=== PATIENT | female | born 2000 | race Caucasian/White ===

== ENCOUNTER 2022-11-23 17:27 | Emergency (ER) | payer BC, OTHER ==
--- NOTE | 2022-11-23 17:57 | ED ---
General Adult HPI - General Source: RN notes reviewed <Desiree Jett - Last Filed: 11/23/22 17:56> <Mi Estrella - Last Filed: 11/24/22 01:46> - General Chief complaint: Psychiatric Symptoms Stated complaint: mental health Time Seen by Provider: 11/23/22 17:56 - History of Present Illness Initial comments: 22-year-old female who presents the emergency department with a chief complaint of psychiatric evaluation. Patient reports worsening anxiety and phobia. Denies homicidal or suicidal ideation at the time of evaluation. (Desiree Pace) Review of Systems ROS Other: All systems not noted in ROS Statement are negative. <Desiree Jett - Last Filed: 11/23/22 17:56> ROS Other: All systems not noted in ROS Statement are negative. <Mi Estrella - Last Filed: 11/24/22 01:46> ROS Statement: Those systems with pertinent positive or pertinent negative responses have been documented in the HPI. General Exam <Desiree Jett - Last Filed: 11/23/22 17:56> - General Exam Comments Initial Comments: Visual Physical Exam Vital signs reviewed General: Well-appearing, nontoxic, no acute distress. Head: Normocephalic, atraumatic Eyes: PERRLA, EOMI ENT: Airway patent Chest: Nonlabored breathing Skin: No visual rash, normal skin tone Neuro: Alert and oriented 3 Musculoskeletal: No gross abnormalities (Desiree Jett) Course Vital Signs 11/23/22 11/23/22 17:54 21:20 Temperature 98.4 F Pulse Rate 91 94 Respiratory 18 18 Rate Blood Pressure 110/69 126/70 O2 Sat by Pulse 95 97 Oximetry Medical Decision Making - Lab Data Lab Results 11/23/22 11/23/22 Range/Units 21:24 21:36 Urine Opiates Screen Not Detected (NotDetected) Ur Oxycodone Screen Not Detected (NotDetected) Urine Methadone Screen Not Detected (NotDetected) Ur Propoxyphene Screen Not Detected (NotDetected) Ur Barbiturates Screen Not Detected (NotDetected) U Tricyclic Antidepress Not Detected (NotDetected) Ur Phencyclidine Scrn Not Detected (NotDetected) Ur Amphetamines Screen Not Detected (NotDetected) U Methamphetamines Scrn Not Detected (NotDetected) U Benzodiazepines Scrn Not Detected (NotDetected) Urine Cocaine Screen Not Detected (NotDetected) U Marijuana (THC) Screen Not Detected (NotDetected) Coronavirus (PCR) Not Detected (Not Detectd) Disposition <Desiree Jett - Last Filed: 11/23/22 17:56> Is patient prescribed a controlled substance at d/c from ED?: No Time of Disposition: 01:32 <Mi Estrella - Last Filed: 11/24/22 01:46> Clinical Impression: Anxiety Disposition: LEFT AGAINST MEDICAL ADVICE Condition: Undetermined Referrals: None,Stated [Primary Care Provider] - 1-2 days
[2022-11-23 18:01] VITALS: RESP 18; TEMP 98.4
[2022-11-23 21:22] VITALS: BP 126/70; PULSE 94
[2022-11-23 22:39] LABS: Cocaine Screen,Urine Not Detected (NotDetected); Phencyclidine Screen,Urine Not Detected (NotDetected); Urn Cannabinoid Scrn Not Detected (NotDetected)
[2022-11-23 22:40] LABS: Amphetamine Screen,Urine Not Detected (NotDetected); Barbiturate Screen,Urine Not Detected (NotDetected); Benzodiazepines Screen,Urine Not Detected (NotDetected); Methadone Screen, Urine Not Detected (NotDetected); Opiate Screen,Urine Not Detected (NotDetected); Oxycodone Screen, Urine Not Detected (NotDetected); Tricyclic Antidepressant,Urine Not Detected (NotDetected)
== END 2022-11-24 03:14 | disposition left against medical advice (07) ==
LOC: EC 17:27
DX: F41.9 Anxiety disorder, unspecified (principal); Z20.822 Contact with and (suspected) exposure to COVID-19; Z53.29 Procedure and treatment not carried out because of patient's decision for other reasons
CPT/HCPCS: 80306; 87635; 99284

== ENCOUNTER 2022-11-24 13:30 | Inpatient (IN) | payer BC ==
--- NOTE | 2022-11-24 14:01 | ED ---
General Adult HPI - General Source: patient, EMS, RN notes reviewed, old records reviewed Mode of arrival: EMS Limitations: no limitations <Sagar Peraza - Last Filed: 11/24/22 13:58> <Ricardo Fulton - Last Filed: 11/24/22 16:14> - General Chief complaint: Anxiety Stated complaint: poss GI bleed, anxiety Time Seen by Provider: 11/24/22 13:36 - History of Present Illness Initial comments: 20-year-old female presenting for evaluation of anxiety, depression and thoughts of suicide. Patient states she has been dealing with significant anxiety for the past 2 years. She does have thoughts of suicide but does not have a specific plan. Denies any self-harm, no ingestion. She has complained of one episode of bright red rectal bleeding. She states that she has a difficult time with bowel movements but has never had prior rectal bleeding. No anticoagulation. (Sagar Peraza) - Related Data Home Medications Medication Instructions Recorded Confirmed FLUoxetine HCL [PROzac] 20 mg PO DAILY 11/24/22 11/24/22 Allergies Allergy/AdvReac Type Severity Reaction Status Date / Time milk Allergy Unknown Verified 11/24/22 15:24 tree nut [Nut] Allergy Swelling Verified 11/24/22 15:24 Review of Systems ROS Other: All systems not noted in ROS Statement are negative. <Sagar Peraza - Last Filed: 11/24/22 13:58> ROS Other: All systems not noted in ROS Statement are negative. <Ricardo Fulton - Last Filed: 11/24/22 16:14> ROS Statement: Those systems with pertinent positive or pertinent negative responses have been documented in the HPI. Past Medical History Past Medical History: No Reported History History of Any Multi-Drug Resistant Organisms: None Reported Past Surgical History: No Surgical Hx Reported Past Psychological History: Anxiety, Panic Disorder Smoking Status: Never smoker Past Alcohol Use History: None Reported Past Drug Use History: None Reported <Sagar Peraza - Last Filed: 11/24/22 13:58> General Exam Limitations: no limitations General appearance: alert, in no apparent distress, anxious Head exam: Present: atraumatic, normocephalic ENT exam: Present: normal exam Neck exam: Present: normal inspection. Absent: tenderness, meningismus Respiratory exam: Present: normal lung sounds bilaterally. Absent: respiratory distress, wheezes Cardiovascular Exam: Present: regular rate, normal rhythm GI/Abdominal exam: Present: soft. Absent: distended, tenderness Rectal exam: Present: other (Small rectal fissure at 6:00). Absent: black stool, bloody stool Extremities exam: Present: normal inspection, normal capillary refill Neurological exam: Present: alert Psychiatric exam: Present: anxious, flat affect, suicidal ideation Skin exam: Present: warm, dry, intact. Absent: cyanosis, diaphoretic <Sagar Peraza - Last Filed: 11/24/22 13:58> Course <Sagar Peraza - Last Filed: 11/24/22 13:58> Vital Signs 11/24/22 13:32 Temperature 98.6 F Pulse Rate 75 Respiratory 18 Rate Blood Pressure 106/70 O2 Sat by Pulse 97 Oximetry - Reevaluation(s) Reevaluation #1: 11/24/22 14:00 Patient cleared for EPS. (Sagar Peraza) Medical Decision Making <Sagar Peraza - Last Filed: 11/24/22 13:58> <Ricardo Fulton - Last Filed: 11/24/22 16:14> - Medical Decision Making Was pt. sent in by a medical professional or institution (, PA, MANAGER MARKET [employer]LLIGENCE, urgent care, hospital, or half-way...) When possible be specific @ -No Did you speak to anyone other than the patient for history (EMS, parent, family, police, friend...)? What history was obtained from this source @ -No Did you review nursing and triage notes (agree or disagree)? Why? @ -I reviewed and agree with nursing and triage notes Were old charts reviewed (outside hosp., previous admission, EMS record, old EKG, old radiological studies, urgent care reports/EKG's, half-way records)? Report findings @ -[No old charts for review Differential Diagnosis (chest pain, altered mental status, abdominal pain women, abdominal pain men, vaginal bleeding, weakness, fever, dyspnea, syncope, headache, dizziness, GI bleed, back pain, seizure, CVA, palpatations, mental health, musculoskeletal)? @ Differential Mental Health Depression, anxiety, bipolar, psychosis, schizophrenia, borderline personality, situational depression, adjustment disorder, behavioral disorder, brain tumor, malingering, substance abuse, encephalopathy, medication reaction, dementia, hypothyroidism, degenerative neurologic disorder, lupus.... This is not meant to be all-inclusive list EKG interpreted by me (3pts min.). @ -As above X-rays interpreted by me (1pt min.). @ -None done CT interpreted by me (1pt min.). @ -None done U/S interpreted by me (1pt. min.). @ -None done What testing was considered but not performed or refused? (CT, X-rays, U/S, labs)? Why? @ -None What meds were considered but not given or refused? Why? @ -None Did you discuss the management of the patient with other professionals (professionals i.e. , PA, MANAGER MARK[employer], lab, RT, psych nurse, school social worker, manager metal, teacher, transportation security officer, disease case manager rn)? Give summary @ -No Was smoking cessation discussed for >3mins.? @ -No Was critical care preformed (if so, how long)? @ -No Were there social determinants of health that impacted care today? How? (Homelessness, low income, unemployed, alcoholism, drug addiction, transportation, low edu. Level, literacy, decrease access to med. care, senior care, rehab)? @ -No Was there de-escalation of care discussed even if they declined (Discuss DNR or withdrawal of care, Hospice)? DNR status @ -No What co-morbidities impacted this encounter? (DM, HTN, Smoking, COPD, CAD, Cancer, CVA, ARF, Chemo, Hep., AIDS, mental health diagnosis, sleep apnea, morbid obesity)? @ -None Was patient admitted / discharged? Hospital course, mention meds given and route, prescriptions, significant lab abnormalities, going to [place] and other p ertinent info. @Patient medically cleared awaiting EPS evaluation. (Sagar Peraza) Was patient admitted / discharged? Hospital course, mention meds given and route, prescriptions, significant lab abnormalities, going to [place] and other pertinent info. @ -[The patient was evaluated by EPS, the case was discussed with psychiatry and they will admit the patient. She has sign herself in voluntarily Undiagnosed new problem with uncertain prognosis? @ -[No] Drug Therapy requiring intensive monitoring for toxicity (Heparin, Nitro, Insulin, Cardizem)? @ -[No] Were any procedures done? @ -[No] Diagnosis/symptom? @ -Acute anxiety, uncomplicated Acute, or Chronic, or Acute on Chronic? @ - Uncomplicated (without systemic symptoms) or Complicated (systemic symptoms)? @ -[ Side effects of treatment? @ -[No] Exacerbation, Progression, or Severe Exacerbation? @ -[No] Poses a threat to life or bodily function? How? (Chest pain, USA, SC, pneumonia, PE, COPD, DKA, ARF, appy, cholecystitis, CVA, Diverticulitis, Homicidal, Suicidal, threat to staff... and all critical care pts) @ -[No] (Ricardo Fulton) Disposition <Sagar Peraza - Last Filed: 11/24/22 13:58> Is patient prescribed a controlled substance at d/c from ED?: No <Ricardo Fulton - Last Filed: 11/24/22 16:14> Clinical Impression: Anxiety Disposition: ADMITTED IP TO THIS HOSP Condition: Fair Instructions (If sedation given, give patient instructions): Generalized Anxiety Disorder (ED) Referrals: None,Stated [Primary Care Provider] - 1-2 days
[2022-11-24 17:05] LABS: Amphetamine Screen,Urine Not Detected (NotDetected); Barbiturate Screen,Urine Not Detected (NotDetected); Benzodiazepines Screen,Urine Not Detected (NotDetected); Cocaine Screen,Urine Not Detected (NotDetected); Methadone Screen, Urine Not Detected (NotDetected); Opiate Screen,Urine Not Detected (NotDetected); Oxycodone Screen, Urine Not Detected (NotDetected); Phencyclidine Screen,Urine Not Detected (NotDetected); Tricyclic Antidepressant,Urine Not Detected (NotDetected); Urn Cannabinoid Scrn Not Detected (NotDetected)
[2022-11-24] MEDS ORDERED: ACETAMINOPHEN TAB 325 MG TAB PO PRN (17:37)
[2022-11-24] MEDS ORDERED: MAG HYDROX/AL HYDROX/SIMETH 30 ML CUP PO PRN (17:37)
[2022-11-24] MEDS ORDERED: MAGNESIUM HYDROXIDE 2,400 MG/10 ML CUP PO PRN (17:37)
[2022-11-24] MEDS ORDERED: HALOPERIDOL LACTATE 5 MG/ML 1 ML VIAL IM PRN (17:39)
[2022-11-24] MEDS ORDERED: LORazepam 2 MG/ML INJ IM PRN (17:39)
[2022-11-24] MEDS: LORazepam 1 MG TAB PO PRN (19:06)
[2022-11-24 20:31] LABS: Amorphous Sediment,Urine Occasional /hpf; Appearance,Urine Cloudy (Clear); Bilirubin,Urine Negative (Negative); Blood,Urine Negative (Negative); Color,Urine Yellow; Glucose,Urine (UA) Negative (Negative); Ketones,Urine Negative (Negative); Leukocyte Esterase,Urine Negative (Negative); Mucus,Urine Few /hpf; Nitrite,Urine Negative (Negative); Protein,Urine Trace (Negative); RBC,Urine 1 /hpf (0-5); Specific Gravity,Urine 1.017 (1.001-1.035); Squamous Epithelial Cell,Urine 3 /hpf (0-4); Urobilinogen,Urine <2.0 mg/dL (<2.0); WBC,Urine 1 /hpf (0-5)
[2022-11-24] MEDS: haloperidoL 5 MG TAB PO PRN (21:12)
[2022-11-24] MEDS ORDERED: ALBUTEROL INHALER 60 PUFF/8 GM INHALER (MHU) INHALATION PRN (22:19)
--- NOTE | 2022-11-25 02:27 | P.PN ---
Progress Note - Text Progress Note Date: 11/25/22 patient is medicated and sleeping
[2022-11-25] MEDS: NICOTINE 14MG/24HR PATCH TRANSDERM SCH (08:43)
[2022-11-25] MEDS: FLUoxetine HCL 20 MG CAP PO SCH (08:43)
[2022-11-25 09:28] LABS: Basophils # (A) 0.1 k/uL (0-0.2); Basophils % (A) 1 %; Eosinophils # (A) 0.4 k/uL (0-0.7); Eosinophils % (A) 6 %; HCT 39.5 % (34.0-46.0); HGB 12.6 gm/dL (11.4-16.0); Lymphocytes # (A) 2.3 k/uL (1.0-4.8); Lymphocytes % (A) 34 %; MCH 28.9 pg (25.0-35.0); MCV 90.3 fL (80.0-100.0); Mean Platelet Volume 8.8; Monocytes # (A) 0.4 k/uL (0-1.0); Monocytes % (A) 5 %; Neutrophils # (A) 3.6 k/uL (1.3-7.7); Neutrophils % (A) 52 %; Platelet Count 242 k/uL (150-450); RBC 4.38 m/uL (3.80-5.40); RDW 13.4 % (11.5-15.5); WBC 6.8 k/uL (3.8-10.6)
[2022-11-25 09:53] LABS: ALT 14 U/L (4-34); AST 22 U/L (14-36); African American GFR (CKD) >90 (>60 ml/min/1.73 sqM); Albumin 4.5 g/dL (3.5-5.0); Alkaline Phosphatase 53 U/L (38-126); Anion Gap 11 mmol/L; Blood Urea Nitrogen 24 mg/dL (7-17); Calcium 9.4 mg/dL (8.4-10.2); Carbon Dioxide 23 mmol/L (22-30); Chloride 104 mmol/L (98-107); Glucose 103 mg/dL (74-99); Non-African American GFR(CKD) >90 (>60 ml/min/1.73 sqM); Potassium 4.2 mmol/L (3.5-5.1); Sodium 138 mmol/L (137-145); Total Bilirubin 0.7 mg/dL (0.2-1.3); Total Protein 7.5 g/dL (6.3-8.2)
[2022-11-25] MEDS: LORazepam 1 MG TAB PO PRN ×2 (13:37→21:52)
[2022-11-25] MEDS: haloperidoL 5 MG TAB PO PRN (15:14)
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
[2022-11-26 07:03] VITALS: BP 102/54; PULSE 86; RESP 14; TEMP 97.6
[2022-11-26] MEDS: FLUoxetine HCL 20 MG CAP PO SCH (09:07)
[2022-11-26] MEDS: NICOTINE 14MG/24HR PATCH TRANSDERM SCH (09:08)
[2022-11-26 09:19] VITALS: BMI 19.7
[2022-11-26] MEDS: LORazepam 1 MG TAB PO PRN (10:32)
--- NOTE | 2022-11-26 12:56 | P.DS ---
Providers Date of admission: 11/24/22 17:22 Discharge summary She was seen today and yesterday for review. Her Suicidal homicidal ideation have largely resolved. She remained guarded as to her relationship with her male friend and her parenting skills towards her 4-yr son. She stated her anxiety and agoraphobia have worsened and no other Rx seemed to work except benzodiazepine. I questioned whether this was indeed a drug seeking behavoir. She denied and commented prn 0.5 mg po helped her most. She was on SSRI procac with minimal response acccording to her. MSE> She was seen today speaking in a very tone of voice complaining of nothing work; later on she corrected by stating she preferred to go home. No panicky reaction. No suicidal or homicidal ideation. Cog. Oriented insight and judgment was intact Discharge; Depressive Disorder NOS, Anxiety disorder. Management Plan ; Discharge on low dose BNS no repeat Lorazepam 0.5 mg po qhs. . Celexa 20 mg po od. BNZ misuse would have to be further clarified. Discussed at team meeting: Follow up [facility] Liaison Attending physician: Ftio Ayala MD Consults: 11/24/22 17:37 Consult Physician Routine Consulting Provider: [facility] Consult Reason/Comments: H&p Do you want consulting provider notified?: Yes Primary care physician: Stated None Patient Condition at Discharge: Fair Plan - Discharge Summary Discharge Rx Participant: Yes New Discharge Prescriptions: New Citalopram Hydrobromide [CeleXA] 20 mg PO DAILY@0800 30 Days #30 tab LORazepam [Ativan] 0.5 mg PO HS 30 Days #30 tab Discontinued FLUoxetine HCL [PROzac] 20 mg PO DAILY Discharge Medication List Citalopram Hydrobromide [CeleXA] 20 mg PO DAILY@0800 30 Days #30 tab 11/26/22 [Rx] LORazepam [Ativan] 0.5 mg PO HS 30 Days #30 tab 11/26/22 [Rx] Follow up Appointment(s)/Referral(s): [facility]Outside] - 12/09/22 11:00 am (10:30 for paperwork, bring ID and insurance with [email or web address] ) Patient Instructions/Handouts: Generalized Anxiety Disorder (ED) Activity/Diet/Wound Care/Special Instructions: Avoid the use of street drugs and alcohol. Take all medications as prescribed. When you are in need of refills on your medications, please contact your medical provider and/or outpatient psychiatrist to have this done. Please go to scheduled outpatient appointments for aftercare treatment. If symptoms return or become worse, call the crisis line at and/or go to the nearest emergency room for evaluation.
[2022-11-26] MEDS ORDERED: LORazepam 0.5 MG TAB PO SCH (21:00)
[2022-11-27] MEDS ORDERED: CITALOPRAM HYDROBROMIDE 20 MG TAB PO SCH (11:00)
== END 2022-11-26 16:10 | disposition home or self-care (01) | DRG 880 ==
LOC: EC 13:30 → 3MHU 17:22
PROVIDERS: ADMIT Psychiatry & Neurology Psychiatry; ATTEND Psychiatry & Neurology Psychiatry
DX: R45.851 Suicidal ideations (principal); K62.5 Hemorrhage of anus and rectum; F41.9 Anxiety disorder, unspecified; F40.01 Agoraphobia with panic disorder
CPT/HCPCS: 80053; 80306; 81001; 81025; 82075; 83036; 84443; 85025; 87635; 99285

== ENCOUNTER 2023-04-24 05:54 | Observation (INO) | payer BC ==
[2023-04-24] MEDS ORDERED: SODIUM CHLORIDE 0.9% 1,000 ML IV STA (06:20)
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
[2023-04-24 06:59] LABS: Basophils % (A) 0 %; Eosinophils # (A) 0.3 k/uL (0-0.7); Eosinophils % (A) 3 %; HCT 39.2 % (34.0-46.0); HGB 12.7 gm/dL (11.4-16.0); Lymphocytes # (A) 2.5 k/uL (1.0-4.8); Lymphocytes % (A) 19 %; MCH 29.9 pg (25.0-35.0); MCHC 32.5 g/dL (31.0-37.0); MCV 91.9 fL (80.0-100.0); Mean Platelet Volume 8.7; Monocytes # (A) 0.6 k/uL (0-1.0); Monocytes % (A) 5 %; Neutrophils # (A) 9.6 k/uL (1.3-7.7); Neutrophils % (A) 72 %; Platelet Count 238 k/uL (150-450); RBC 4.26 m/uL (3.80-5.40); RDW 12.9 % (11.5-15.5); WBC 13.3 k/uL (3.8-10.6)
[2023-04-24 07:16] LABS: ALT 25 U/L (4-34); AST 39 U/L (14-36); Acetaminophen <10.0 ug/mL; African American GFR (CKD) >90 (>60 ml/min/1.73 sqM); Albumin 4.7 g/dL (3.5-5.0); Alkaline Phosphatase 53 U/L (38-126); Anion Gap 14 mmol/L; Blood Urea Nitrogen 19 mg/dL (7-17); Calcium 9.5 mg/dL (8.4-10.2); Carbon Dioxide 25 mmol/L (22-30); Chloride 109 mmol/L (98-107); Glucose 92 mg/dL (74-99); Lipase 84 U/L (23-300); Non-African American GFR(CKD) >90 (>60 ml/min/1.73 sqM); Potassium 4.1 mmol/L (3.5-5.1); Salicylate <1.0 mg/dL; Sodium 148 mmol/L (137-145); Total Bilirubin 0.2 mg/dL (0.2-1.3); Total Protein 7.9 g/dL (6.3-8.2)
[2023-04-24 07:22] LABS: Alcohol 295 mg/dL
[2023-04-24] MEDS ORDERED: SODIUM CHLORIDE 0.9% 1,000 ML IV ONE (07:25)
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
[2023-04-24] MEDS ORDERED: LORazepam 1 MG TAB PO PRN ×3 (09:05)
[2023-04-24] MEDS ORDERED: NALOXONE 0.4 MG/ML 1 ML VIAL IV PRN (09:22)
[2023-04-24] MEDS ORDERED: ONDANSETRON 4 MG/2 ML VIAL IVP PRN (09:22)
[2023-04-24] MEDS ORDERED: ACETAMINOPHEN TAB 325 MG TAB PO PRN (09:22)
[2023-04-24] MEDS: SODIUM CHLORIDE 0.9% 1,000 ML IV SCH (10:46)
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
[2023-04-24] MEDS ORDERED: ALBUTEROL NEBULIZED 2.5 MG/3 ML INHALATION ONE (14:00)
[2023-04-24] MEDS: IBUPROFEN 400 MG TAB PO PRN (15:28)
[2023-04-24 17:11] LABS: Appearance,Urine Clear (Clear); Bilirubin,Urine Negative (Negative); Blood,Urine Negative (Negative); Color,Urine Colorless; Glucose,Urine (UA) Negative (Negative); Ketones,Urine Trace (Negative); Leukocyte Esterase,Urine Negative (Negative); Nitrite,Urine Negative (Negative); Protein,Urine Negative (Negative); Specific Gravity,Urine 1.015 (1.001-1.035); Urobilinogen,Urine <2.0 mg/dL (<2.0)
[2023-04-24 17:21] LABS: Amphetamine Screen,Urine Not Detected (NotDetected); Barbiturate Screen,Urine Not Detected (NotDetected); Benzodiazepines Screen,Urine Not Detected (NotDetected); Cocaine Screen,Urine Not Detected (NotDetected); Methadone Screen, Urine Not Detected (NotDetected); Opiate Screen,Urine Not Detected (NotDetected); Oxycodone Screen, Urine Not Detected (NotDetected); Phencyclidine Screen,Urine Not Detected (NotDetected); Tricyclic Antidepressant,Urine Not Detected (NotDetected); Urn Cannabinoid Scrn Not Detected (NotDetected)
[2023-04-24] MEDS: AMPICILLIN-SULBACTAM 3 GM in SODIUM CHLORIDE 0.9% 100 ML IVPB SCH (18:00)
[2023-04-24] MEDS: HEPARIN SODIUM,PORCINE 5,000 UNIT/ML 1 ML VIAL SQ SCH (20:59)
[2023-04-24] MEDS: FAMOTIDINE 20 MG/2 ML VIAL IV SCH (21:02)
[2023-04-25] MEDS: SODIUM CHLORIDE 0.9% 1,000 ML IV SCH ×2 (00:32→10:38)
[2023-04-25] MEDS: LORazepam 0.5 MG TAB PO PRN (00:54)
[2023-04-25] MEDS: AMPICILLIN-SULBACTAM 3 GM in SODIUM CHLORIDE 0.9% 100 ML IVPB SCH ×3 (02:35→17:55)
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
[2023-04-25] MEDS: THIAMINE 100 MG TAB PO SCH (08:32)
[2023-04-25] MEDS: FAMOTIDINE 20 MG/2 ML VIAL IV SCH ×2 (08:32→22:52)
[2023-04-25] MEDS: HEPARIN SODIUM,PORCINE 5,000 UNIT/ML 1 ML VIAL SQ SCH ×2 (08:33→22:52)
[2023-04-25 09:03] LABS: Calcium 7.9 mg/dL (8.7-10.3); Carbon Dioxide 24.2 mmol/L (21.6-31.8); Chloride 109 mmol/L (96-109); Glucose 86 mg/dL (70-110); Potassium 3.7 mmol/L (3.5-5.5); Sodium 142 mmol/L (135-145)
[2023-04-25 09:10] LABS: Basophils # (A) 0.04 X 10*3/uL (0.00-0.10); Basophils % (A) 0.3 %; Eosinophils # (A) 0.29 X 10*3/uL (0.04-0.35); Eosinophils % (A) 2.4 %; HCT 32.9 % (37.2-46.3); HGB 10.4 d/dL (12.0-15.0); Lymphocytes # (A) 2.83 X 10*3/uL (0.90-5.00); Lymphocytes % (A) 23.1 %; MCH 29.1 pg (27.0-32.0); MCHC 31.6 d/dL (32.0-37.0); MCV 91.9 FL (80.0-97.0); Monocytes # (A) 1.02 X 10*3/uL (0.20-1.00); Monocytes % (A) 8.3 %; NRBC Per 100 WBC 0 X 10*3/uL (0.00-0.01); Neutrophils # (A) 8.02 X 10*3/uL (1.80-7.70); Neutrophils % (A) 65.6 %; Platelet Count 199 X 10*3/uL (140-440); RBC 3.58 X 10*6/uL (4.10-5.20); RDW 13.3 % (11.5-14.5); WBC 12.24 X 10*3/uL (4.50-10.00)
[2023-04-25] MEDS: ALBUTEROL HFA INHALER INHALATION PRN ×2 (11:14→20:35)
[2023-04-25] MEDS: IBUPROFEN 400 MG TAB PO PRN ×2 (13:08→22:51)
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
[2023-04-26] MEDS: AMPICILLIN-SULBACTAM 3 GM in SODIUM CHLORIDE 0.9% 100 ML IVPB SCH ×3 (00:57→12:45)
[2023-04-26] MEDS: LORazepam 0.5 MG TAB PO PRN (02:07)
[2023-04-26] MEDS: SODIUM CHLORIDE 0.9% 1,000 ML IV SCH ×2 (03:09→15:53)
[2023-04-26] MEDS: FAMOTIDINE 20 MG/2 ML VIAL IV SCH ×2 (08:27→19:43)
[2023-04-26] MEDS: HEPARIN SODIUM,PORCINE 5,000 UNIT/ML 1 ML VIAL SQ SCH ×2 (08:27→19:43)
[2023-04-26] MEDS: THIAMINE 100 MG TAB PO SCH (08:27)
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
[2023-04-26] MEDS: IBUPROFEN 400 MG TAB PO PRN (19:44)
[2023-04-26] MEDS ORDERED: levonorgestreL 1.5 MG TABLET PO ONE (21:00)
[2023-04-26] MEDS ORDERED: AMOXIC-POT CLAV 875-125MG 1 EACH TAB PO SCH (21:00)
[2023-04-26] MEDS ORDERED: EMTRICITABINE/TENOFOVIR (TDF) 1 EACH, DOLUTEGRAVIR SODIUM 50 MG PO SCH ×2 (21:30)
[2023-04-26 21:45] VITALS: BP 109/72; PULSE 93; RESP 16; TEMP 98.3
== END 2023-04-26 22:45 ==
LOC: EC 05:54 → 6NMEDSUR 09:50 → OBSVTOIN 04-26 06:48 → INTOOBSV 04-26 06:48
PROVIDERS: ADMIT Internal Medicine; ATTEND Internal Medicine
DX: F10.129 Alcohol abuse with intoxication, unspecified (principal); S02.5XXA Fracture of tooth (traumatic), initial encounter for closed fracture; S01.522A Laceration with foreign body of oral cavity, initial encounter; S39.94XA Unspecified injury of external genitals, initial encounter; F32.A Depression, unspecified; R45.851 Suicidal ideations; X58.XXXA Exposure to other specified factors, initial encounter; E86.0 Dehydration; K02.9 Dental caries, unspecified; K04.7 Periapical abscess without sinus; K05.10 Chronic gingivitis, plaque induced; K13.0 Diseases of lips; E87.0 Hyperosmolality and hypernatremia; J45.909 Unspecified asthma, uncomplicated; M54.2 Cervicalgia; F41.0 Panic disorder [episodic paroxysmal anxiety]; D72.829 Elevated white blood cell count, unspecified; M25.511 Pain in right shoulder; R51.9 Headache, unspecified; Y90.8 Blood alcohol level of 240 mg/100 ml or more; F41.9 Anxiety disorder, unspecified; Z79.899 Other long term (current) drug therapy; Z91.011 Allergy to milk products; Z91.018 Allergy to other foods
CPT/HCPCS: 96376 ×3; 96366 ×2; 96372 ×2; 96375 ×2; 82075; 96361 ×2; 96365; 99285; 36415; 94640 ×2; 93005; 80053; 80048; 83690; 85025 ×2; 81003; 84702; 87040; 80306; 80143; 80320; 87635; 80179; 72125; 70486; 70450; G0378 ×3; J1644 ×3; J2405; J3490 ×3; J0295 ×3

== ENCOUNTER 2023-04-26 20:26 | Inpatient (IN) | payer BC ==
[2023-04-26] MEDS ORDERED: MAG HYDROX/AL HYDROX/SIMETH 30 ML CUP PO PRN (21:39)
[2023-04-26] MEDS ORDERED: ACETAMINOPHEN TAB 325 MG TAB PO PRN (21:39)
[2023-04-26] MEDS ORDERED: MAGNESIUM HYDROXIDE 2,400 MG/30 ML CUP PO PRN (21:39)
[2023-04-26] MEDS ORDERED: haloperidoL 5 MG TAB PO PRN (21:39)
[2023-04-26] MEDS ORDERED: LORazepam 2 MG/ML INJ IM PRN (21:45)
[2023-04-26] MEDS ORDERED: HALOPERIDOL LACTATE 5 MG/ML 1 ML VIAL IM PRN (21:49)
[2023-04-26] MEDS: LORazepam 1 MG TAB PO PRN (23:09)
[2023-04-26] MEDS: EMTRICITABINE/TENOFOVIR (TDF) 1 EACH, DOLUTEGRAVIR SODIUM 50 MG PO SCH ×2 (23:37)
[2023-04-26] MEDS: ALBUTEROL INHALER 60 PUFF/8 GM INHALER (MHU) INHALATION PRN (23:39)
[2023-04-27] MEDS ORDERED: traZODone HCL 50 MG TAB PO SCH (00:15)
--- NOTE | 2023-04-27 03:33 | P.PN ---
Progress Note - Text Progress Note Date: 04/27/23 notified of new consult, patient medicated and sleeping at this time
[2023-04-27] MEDS: NICOTINE 14MG/24HR PATCH TRANSDERM SCH (08:45)
[2023-04-27] MEDS: EMTRICITABINE/TENOFOVIR (TDF) 1 EACH, DOLUTEGRAVIR SODIUM 50 MG PO SCH ×2 (08:46)
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
[2023-04-27] MEDS: AMOXIC-POT CLAV 875-125MG 1 EACH TAB PO SCH ×2 (13:34→20:33)
[2023-04-27] MEDS: CITALOPRAM HYDROBROMIDE 20 MG TAB PO SCH (13:35)
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
[2023-04-27] MEDS: IBUPROFEN 600 MG TAB PO PRN (15:31)
[2023-04-27] MEDS ORDERED: QUEtiapine 50 MG TAB PO SCH (21:00)
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
[2023-04-28] MEDS: NICOTINE 14MG/24HR PATCH TRANSDERM SCH (08:25)
[2023-04-28] MEDS: AMOXIC-POT CLAV 875-125MG 1 EACH TAB PO SCH ×2 (08:25→20:22)
[2023-04-28] MEDS: CITALOPRAM HYDROBROMIDE 20 MG TAB PO SCH (08:25)
[2023-04-28] MEDS: EMTRICITABINE/TENOFOVIR (TDF) 1 EACH, DOLUTEGRAVIR SODIUM 50 MG PO SCH ×2 (08:26)
[2023-04-28] MEDS: LORazepam 1 MG TAB PO PRN ×2 (09:22→17:44)
[2023-04-28] MEDS: ALBUTEROL INHALER 60 PUFF/8 GM INHALER (MHU) INHALATION PRN ×2 (09:55→15:20)
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
[2023-04-28 13:10] LABS: HIV-1 RNA Not detected (Not detected)
[2023-04-28] MEDS ORDERED: traZODone HCL 50 MG TAB PO SCH (21:00)
[2023-04-29] MEDS: CITALOPRAM HYDROBROMIDE 20 MG TAB PO SCH (08:43)
[2023-04-29] MEDS: AMOXIC-POT CLAV 875-125MG 1 EACH TAB PO SCH ×2 (08:43→21:01)
[2023-04-29] MEDS: NICOTINE 14MG/24HR PATCH TRANSDERM SCH (08:43)
[2023-04-29] MEDS: EMTRICITABINE/TENOFOVIR (TDF) 1 EACH, DOLUTEGRAVIR SODIUM 50 MG PO SCH ×2 (09:00)
[2023-04-29] MEDS: ALBUTEROL INHALER 60 PUFF/8 GM INHALER (MHU) INHALATION PRN (09:27)
[2023-04-29] MEDS ORDERED: LORazepam 1 MG TAB PO PRN (10:15)
[2023-04-29] MEDS ORDERED: CITALOPRAM HYDROBROMIDE 10 MG TAB PO STA (11:05)
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
[2023-04-29] MEDS: hydrOXYzine pamoate 25 MG CAP PO SCH (11:23)
[2023-04-29] MEDS: LORazepam 1 MG TAB PO PRN (14:22)
[2023-04-29] MEDS: MELATONIN 5 MG TABLET PO SCH (21:02)
[2023-04-29] MEDS: traZODone HCL 50 MG TAB PO SCH (21:02)
[2023-04-29] MEDS: PRAZOSIN 1 MG CAP PO SCH (21:04)
[2023-04-29] MEDS: IBUPROFEN 600 MG TAB PO PRN (23:10)
[2023-04-30] MEDS: AMOXIC-POT CLAV 875-125MG 1 EACH TAB PO SCH ×2 (08:51→21:15)
[2023-04-30] MEDS: NICOTINE 14MG/24HR PATCH TRANSDERM SCH (08:51)
[2023-04-30] MEDS: CITALOPRAM HYDROBROMIDE 20 MG TAB PO SCH (08:52)
[2023-04-30] MEDS: hydrOXYzine pamoate 25 MG CAP PO SCH (08:53)
[2023-04-30] MEDS: LORazepam 1 MG TAB PO PRN ×2 (08:57→17:27)
[2023-04-30] MEDS: EMTRICITABINE/TENOFOVIR (TDF) 1 EACH, DOLUTEGRAVIR SODIUM 50 MG PO SCH ×2 (10:20)
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
[2023-04-30] MEDS: PRAZOSIN 1 MG CAP PO SCH ×2 (21:15→21:18)
[2023-04-30] MEDS: traZODone HCL 50 MG TAB PO SCH (21:15)
[2023-04-30] MEDS: MELATONIN 5 MG TABLET PO SCH (21:15)
[2023-05-01] MEDS: IBUPROFEN 600 MG TAB PO PRN (07:20)
[2023-05-01] MEDS: NICOTINE 14MG/24HR PATCH TRANSDERM SCH (07:59)
[2023-05-01] MEDS: hydrOXYzine pamoate 25 MG CAP PO SCH (08:00)
[2023-05-01] MEDS: AMOXIC-POT CLAV 875-125MG 1 EACH TAB PO SCH ×2 (08:00→20:18)
[2023-05-01] MEDS: CITALOPRAM HYDROBROMIDE 20 MG TAB PO SCH (08:00)
[2023-05-01] MEDS: EMTRICITABINE/TENOFOVIR (TDF) 1 EACH, DOLUTEGRAVIR SODIUM 50 MG PO SCH ×2 (09:14)
[2023-05-01] MEDS: LORazepam 1 MG TAB PO PRN (11:52)
[2023-05-01] MEDS: MELATONIN 5 MG TABLET PO SCH (20:16)
[2023-05-01] MEDS: traZODone HCL 50 MG TAB PO SCH (20:16)
[2023-05-01] MEDS: PRAZOSIN 1 MG CAP PO SCH (20:17)
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
[2023-05-02] MEDS: ALBUTEROL INHALER 60 PUFF/8 GM INHALER (MHU) INHALATION PRN (03:33)
[2023-05-02 07:26] VITALS: BP 89/52; PULSE 90; RESP 14; TEMP 97.8
[2023-05-02] MEDS: NICOTINE 14MG/24HR PATCH TRANSDERM SCH (07:59)
[2023-05-02] MEDS: CITALOPRAM HYDROBROMIDE 20 MG TAB PO SCH (08:00)
[2023-05-02] MEDS: hydrOXYzine pamoate 25 MG CAP PO SCH (08:00)
[2023-05-02] MEDS: AMOXIC-POT CLAV 875-125MG 1 EACH TAB PO SCH (08:01)
[2023-05-02] MEDS: EMTRICITABINE/TENOFOVIR (TDF) 1 EACH, DOLUTEGRAVIR SODIUM 50 MG PO SCH ×2 (08:35)
[2023-05-02] MEDS: IBUPROFEN 600 MG TAB PO PRN (08:37)
[2023-05-02] MEDS: LORazepam 1 MG TAB PO PRN (09:08)
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
== END 2023-05-02 14:21 | disposition home or self-care (01) | DRG 881 ==
LOC: MERGE 22:39 → 3MHU 22:39
PROVIDERS: ADMIT Psychiatry & Neurology Psychiatry; ATTEND Psychiatry & Neurology Psychiatry
DX: F32.A Depression, unspecified (principal); R45.851 Suicidal ideations; T74.21XA Adult sexual abuse, confirmed, initial encounter; F10.10 Alcohol abuse, uncomplicated; F43.0 Acute stress reaction; S02.5XXA Fracture of tooth (traumatic), initial encounter for closed fracture; G47.00 Insomnia, unspecified; J45.909 Unspecified asthma, uncomplicated; K13.0 Diseases of lips; F40.01 Agoraphobia with panic disorder; W19.XXXA Unspecified fall, initial encounter; Z79.899 Other long term (current) drug therapy; Z82.49 Family history of ischemic heart disease and other diseases of the circulatory system; Z91.018 Allergy to other foods; Z71.6 Tobacco abuse counseling; Z91.011 Allergy to milk products; F17.290 Nicotine dependence, other tobacco product, uncomplicated
CPT/HCPCS: 80074; 87390; 87535; 93005